=== PATIENT | female | born 1975 | race Two or more races ===

== ENCOUNTER 2025-01-20 21:55 | Inpatient (IN) | payer MEDICAID, OTHER ==
[~2025-01-20] VITALS: Ht 165.1 cm; Wt 65.4 kg
--- NOTE | 2025-01-20 23:14 | DVH ---
Exam: CT CT AB PEL WO CON-NO ORAL OR IV History: rlq pain Comparison Study: None TECHNIQUE: Multidetector CT of the abdomen and pelvis was performed from lung bases to pubic symphysi s. Imaging was performed without IV contrast. Axial, coronal, and sagittal multiplanar reformats were obtained from the axial data set by the technologist. RADIATION DOSE: CTDI vol 5.43 mGy. DLP 299.58 mGy.cm Findings: Limited evaluation of the solid organs in the absence of IV contrast. Liver: Unremarkable. Spleen: Unremarkable. Pancreas: Unremarkable. Gallbladder: Unremarkable. Adrenals: Unremarkable Kidneys: Unremarkable. Pelvic Viscera: Unremarkable. Vasculature: Unremarkable. Retroperitoneum: Shotty retroperitoneal nodes. No ascites. Bowel: No bowel obstruction. Colonic diverticulosis without CT evidence of diverticulitis. Fluid-fill ed and dilated appendix measuring up to 10 mm with periappendiceal stranding. No abscess. Small hiata l hernia. Postsurgical changes of the stomach and small bowel. Musculoskeletal: Sclerotic changes across the opposing endplates of L3-4, likely degenerative in etio logy. Soft tissues: Unremarkable Lungs: Minimal basilar atelectasis/scarring. Impression: 1. Findings as above suggestive of acute appendicitis in the appropriate clinical setting. No abscess . 2. Additional findings as detailed.
[2025-01-20 23:32] LABS: Hematocrit 31.7 % (36.0-46.0); Hemoglobin 9.7 g/dL (12.2-16.2); Mean Corpuscular Hemoglobin 18.2 pg (28.0-32.0); Mean Corpuscular Volume 59.4 fL (80.0-100.0); Nucleated Red Blood Cells % 0.0 %
[2025-01-20 23:41] LABS: Albumin 4.4 g/dL (3.2-4.8); Alkaline Phosphatase 86 U/L (46-116); Anion Gap 9 (5-15); BUN/Creatinine Ratio 7.5 (10.0-20.0); Bilirubin, Total 1.0 mg/dL (0.2-1.0); Calcium 9.2 mg/dL (8.7-10.4); Carbon Dioxide 27 mmol/L (20-31); Chloride 103 mmol/L (98-107); Glucose 92 mg/dL (74-106); Lipase 37 U/L (12-53); Potassium 4.3 mmol/L (3.5-5.1); Sodium 139 mmol/L (136-145); Total Protein 7.1 g/dL (5.7-8.2)
[2025-01-20 23:42] LABS: Alanine Aminotransferase < 9 U/L (7-40); Blood Urea Nitrogen 6 mg/dL (9-23)
[2025-01-21] VITALS (7 sets, daily range): BP systolic 92–108; BP diastolic 58–64; PULSE 56–80; RESP 12–18; TEMP 97.5–97.9; O2SAT 97–100
--- NOTE | 2025-01-21 00:21 | ED.PDOC ---
GI ASSESSMENT HPI Comments Patient complaining of right lower quadrant abdominal pain which started at 9:00 a.m.. States she had some intermittent nausea and vomiting. Reports pain as 6/10 pain. Nothing makes it better, nothing makes it worse. Patient does report a history of gastric bypass. States she has also been hospitalized for strictures in her small intestines. No fevers no chills currently. Chief Complaint: Abdominal Pain Time Seen by MD: 22:10 Reviewed Notes: Nurses Notes Allergies: Coded Allergies: NO KNOWN ALLERGIES (Unverified , 01/20/25) Information Source: Patient Mode of Arrival: Ambulatory Past Medical History PAST MEDICAL HISTORY: Denies Surgical History: Denies all surgeries KNOCKER OFF History: No Pertinent KNOCKER OFF History Constitutional: denies: chills, diaphoresis, fatigue, fever, malaise, sweats, weakness, others EENTM: denies: blurred vision, double vision, ear bleeding, ear discharge, ear drainage, ear pain, ear ringing, eye pain, eye redness, hearing loss, mouth pain, mouth swelling, nasal discharge, nose bleeding, nose congestion, nose pain, photophobia, tearing, throat pain, throat swelling, voice changes, others Respiratory: denies: cough, hemoptysis, orthopnea, SOB at rest, shortness of breath, SOB with excertion, stridor, wheezing, others Cardiovascular: denies: chest pain, dizzy spells, diaphoresis, Dyspnea on exertion, edema, irregular heart beat, left arm pain, lightheadedness, palpitations, PND, syncope, others Gastrointestinal: reports: abdominal pain, nausea, vomiting; denies: abdomen distended, blood streaked bowels, constipated, diarrhea, dysphagia, difficulty swallowing, hematemesis, melena, poor appetite, poor fluid intake, rectal bleeding, rectal pain, others Genitourinary: denies: abnormal vagina bleeding, burning, dyspareunia, dysuria, flank pain, frequency, hematuria, incontinence, pain, , vagina discharge, urgency, others Neurological: denies: dizziness, fainting, headache, left sided numbness, left sided weakness, numbness, paresthesia, pre-existing deficit, right sided numbness, right sided weakness, seizure, speech problems, tingling, tremors, weakness, others Musculoskeletal: denies: back pain, gout, joint pain, joint swelling, muscle pain, muscle stiffness, neck pain, others Integumetry: denies: bruises, change in color, change in hair/nails, dryness, laceration, lesions, lumps, rash, wounds, others Allergic/Immunocompromised: denies: Difficulty Healing, Frequent Infections, Hives, Itching, others Hematologic/Lymphatic: denies: anemia, blood clots, easy bleeding, easy bruising, swollen glands, others Endocrine: denies: excessive hunger, excessive sweating, excessive thirst, excessive urination, flushing, intolerance to cold, intolerance to heat, unex plained weight gain, unexplained weight loss, others Psychiatric: denies: anxiety, bipolar disorder, depression, hopeless, panic disorder, schizophrenia, sleepless, suicidal, others Physical Exam General Appearance: Mild Distress, Normal HEENT: Normal ENT Inspection, Pharynx Normal, TMs Normal Neck: Full Range of Motion, Non-Tender, Normal, Normal Inspection Respiratory: Chest Non-Tender, Lungs Clear, No Accessory Muscle Use, No Respiratory Distress, Normal Breath Sounds Cardiovascular: No Edema, No JVD, No Murmur, No Gallop, Normal Peripheral Pulses, Regular Rate/Rhythm Breast Exam: Deferred Gastrointestinal: No Organomegaly, Normal Bowel Sounds, RLQ (Right lower quadrant tender to palpation, no rebound tenderness), Soft Genitalia: Deferred Pelvic: Deferred Rectal: Deferred Extremities: No calf tenderness, Normal capillary refill, Normal inspection, Normal range of motion, Non-tender, No pedal edema Musculoskeletal : Apperance: Normal Neurologic: Alert, tallow refiner II-XII nml as Tested, No Motor Deficits, Normal Affect, Normal Mood, No Sensory Deficits Cerebellar Function: Normal Reflexes: Normal Skin: Dry, Normal Color, Warm Lymphatic: No Adenopathy Was a procedure done? Was a procedure done?: No GI differential Dx Differential Diagnosis: Appendicitis, Bowel Obstruction, Gastritis/PUD, Gastroenteritis, UTI X-Ray, Labs, Meds, VS Vital Signs Date Time Temp Pulse Resp B/P (MAP) Pulse Ox O2 Delivery O2 Flow Rate FiO2 01/20/25 21:56 97.6 85 18 124/83 95 97.6 Lab Test 01/20/25 22:48 Range/Units White Blood Count 7.9 4.4-10.8 10^3/uL Red Blood Count 5.34 H 4.0-5.20 10^6/uL Hemoglobin 9.7 L 12.2-16.2 g/dL Hematocrit 31.7 L 36.0-46.0 % Mean Corpuscular Volume 59.4 L 80.0-100.0 fL Mean Corpuscular Hemoglobin 18.2 L 28.0-32.0 pg Mean Corpuscular Hemoglobin Concent 30.7 L 32.0-36.0 g/dL Red Cell Distribution Width 20.0 H 11.8-14.3 % Platelet Count 238 140-450 10^3/uL Mean Platelet Volume 9.5 6.9-10.8 fL Neutrophils (%) (Auto) 80.1 H 37.0-80.0 % Lymphocytes (%) (Auto) 12.1 10.0-50.0 % Monocytes (%) (Auto) 6.6 0.0-12.0 % Eosinophils (%) (Auto) 0.6 0.0-7.0 % Basophils (%) (Auto) 0.6 0.0-2.0 % Neutrophils # (Auto) 6.4 1.6-8.6 10 ^3/uL Lymphocytes # (Auto) 1.0 0.4-5.4 10 ^3/uL Monocytes # (Auto) 0.5 0-1.3 10 ^3/uL Eosinophils # (Auto) 0 0-0.8 10 ^3/uL Basophils # (Auto) 0 0-0.2 10 ^3/uL Nucleated Red Blood Cells 0.0 % Sodium Level 139 136-145 mmol/L Potassium Level 4.3 3.5-5.1 mmol/L Chloride Level 103 98-107 mmol/L Carbon Dioxide Level 27 20-31 mmol/L Anion Gap 9 5-15 Blood Urea Nitrogen 6 L 9-23 mg/dL Creatinine 0.80 0.550-1.02 mg/dL Glomerular Filtration Rate Calc 91 >90 mL/min BUN/Creatinine Ratio 7.5 L 10.0-20.0 Serum Glucose 92 74-106 mg/dL Calcium Level 9.2 8.7-10.4 mg/dL Total Bilirubin 1.0 0.2-1.0 mg/dL Aspartate Amino Transferase (AST) 20 13-40 U/L Alanine Aminotransferase (ALT) < 9 7-40 U/L Alkaline Phosphatase 86 46-116 U/L Total Protein 7.1 5.7-8.2 g/dL Albumin 4.4 3.2-4.8 g/dL Lipase 37 12-53 U/L X-Ray, Labs, Meds, VS Comment Patient will be admitted for acute appendicitis Patient be started on Zosyn and Cipro To be given morphine for pain control Recommend surgery consult in the morning Patient advised to be NPO has been 90 Time of 1ST Reevaluation: 00:21 Reevaluation 1ST: Unchanged Patient Education/Counseling: Diagnosis, Treatment Family Education/Counseling: Diagnosis SEPSIS Sepsis Screen Date sepsis recognized/suspect: Jan 20, 2025 Time Sepsis recognized/suspect: 2156 Recent Procedure: No On Antibiotic Therapy: No Respiratory Rate >20: No Heart Rate >90: No Temp<36 C (96.8 F) or >38.3 C: No SBP <90 or MAP <65 mmHG: No New Acute Mental Status Change: No Is the patient on CPAP, BIPAP,: No Physician Orders Urinalysis (01/20/25 22:36) Ct Ab Pel Wo Con-No Oral Or Iv (01/20/25 22:36) Vital Signs Date Time Temp Pulse Resp B/P (MAP) Pulse Ox O2 Delivery O2 Flow Rate FiO2 01/20/25 21:56 97.6 85 18 124/83 95 97.6 Laboratory Tests Test 01/20/25 22:48 White Blood Count 7.9 10^3/uL (4.4-10.8) Departure 1 Departure Time of Disposition: 00:19 Impression: Primary Impression: Appendicitis Qualified Codes: K35.30 - Acute appendicitis with localized peritonitis, without perforation or gangrene Disposition: ADMITTED INPATIENT Condition: Stable Discharged With: Self Critical Care Note Critical Care Time?: No Stability Stability form required: No Heart Score Heart Score: Heart Score Response (Comments) Value History N/A 0 EKG N/A 0 Age N/A 0 Risk Factors N/A 0 Troponin N/A 0 Total 0 BRENDEN ADAMS Jan 21, 2025 00:21
[2025-01-21] MEDS: ONDANSETRON HCL 4 MG/2 ML VIAL IV ONE (00:41)
[2025-01-21] MEDS: MORPHINE SULFATE 4 MG/ML SYR/VIAL IV ONE (00:42)
[2025-01-21] MEDS ORDERED: ACETAMINOPHEN 325 MG TAB PO PRN (01:00)
--- NOTE | 2025-01-21 01:14 | DVHHPRES ---
History of Present Illness Resident Creating Document: ARELY ORTA History of Present Illness This is a 49-year-old female with past medical history of gastric bypass and history of small-bowel stricture. The patient presented to the ED with chief complaint of acute abdominal pain located in the right lower quadrant. Patient reports that the pain started at 9:00 a.m. before coming to the ED with the abdominal cramps that started to localized in the right lower quadrant. Patient described the pain as sharp in nature associated with nausea and episodes of vom iting. The patient states that the pain is localized in the right lower quadrant with no specific pattern of radiation. Patient rated the pain as 8/10 on the pain scale but on admission was currently 6/10 on the pain scale. Patient denies fever, chills, chest pain, shortness of breath or any other associated symptoms. Patient states that minimal movement exacerbates the pain. Upon my examination, McBurney sign was positive with significant tenderness to palpation in the right lower quadrant. Abdomen was not rigid at this time, there was no leukocytosis, fever or chills. Pena score is 5 points possible for appendicitis. Patient was started on IV ceftriaxone and metronidazole, IV fluids, was placed NPO and surgical consult was placed for possible laparoscopic appendectomy. Patient will be admitted for further assessment and management. Past medical history: Gastric bypass and small bowel stricture Home medications: Denies Surgical history: Gastric bypass Social history: Denies alcohol intake, drug ingestion or smoking Past Surgical History: Other (Gastric bypass) Family History: None Smoke: No ALCOHOL: none Drugs: None Lives: with Family Domestic Violence: Neg Review of Systems Constitutional: No: Fever, Chills, Sweats, Weakness, Malaise, Other Eyes: No: Pain, Vision change, Conjunctivae inflammation, Eyelid inflammation, Other, Redness ENT: No: Ear pain, Ear discharge, Nose pain, Nose discharge, Nose congestion, Mouth pain, Mouth swelling, Throat pain, Throat swelling, Other Respiratory: No: Cough, Dry, Shortness of breath, SOB with excertion, Wheezing, Hemoptysis, Pleuritic Pain, Sputum, Wheezing, Other Cardiovascular: No: Chest Pain, Palpitations, Orthopnea, Paroxysmal Noc. Dyspnea, Edema, Lt Headedness, Other Gastrointestinal: Nausea, Vomiting, Abdominal Pain; No: Diarrhea, Constipation, Melena, Hematochezia, Other Genitourinary: No Dysuria, No Frequency, No Incontinence, No Hematuria, No Retention, No Other Musculoskeletal: No: other, neck pain, shoulder pain, arm pain, back pain, hand pain, leg pain, foot pain Skin: No: Rash, Lesions, Jaundice, Bruising, Other Neurological: No: Weakness, Numbness, Incoordination, Change in speech, Confusion, Seizures, Other Allergies: Coded Allergies: NO KNOWN ALLERGIES (Unverified , 01/20/25) Medications Current Medications Medications Dose Ordered Sig/Rock Route Start Time Stop Time Status Last Admin Dose Admin Acetaminophen 650 mg Q6HP PRN PO 01/21/25 01:00 UNV Acetaminophen/ Hydrocodone Bitart 1 tab Q4HP PRN PO 01/21/25 01:00 UNV Exam Vital Signs Vital Signs Date Time Temp Pulse Resp B/P (MAP) Pulse Ox O2 Delivery O2 Flow Rate FiO2 01/21/25 00:42 62 19 112/69 01/20/25 21:56 97.6 95 97.6 General Appearance: Alert, Oriented X3, Cooperative, mild distress HEENT: Atraumatic, PERRLA, EOMI, Mucous membr. moist/pink Respiratory: Clear to auscultation, Normal air movement Cardiovascular: Regular rate, Normal S1, Normal S2, No murmurs Abdominal: Normal bowel sounds, Other (Abhishek significant tenderness in the right lower quadrant with positive McBurney sign. ) Extremities: No clubbing, No cyanosis, No edema, Normal pulses, No tenderness/swelling Skin: No rashes, No breakdown, No significant lesion Neuro: Normal gait, Normal speech, Strength at 5/5 X4 ext, Normal tone, Sensation intact, Cranial nerves 3-12 NL, Reflexes 2+ Psych/Mental Status: Mental status NL, Mood NL Labs/Xrays Labs Test 01/20/25 22:48 Range/Units White Blood Count 7.9 4.4-10.8 10^3/uL Red Blood Count 5.34 H 4.0-5.20 10^6/uL Hemoglobin 9.7 L 12.2-16.2 g/dL Hematocrit 31.7 L 36.0-46.0 % Mean Corpuscular Volume 59.4 L 80.0-100.0 fL Mean Corpuscular Hemoglobin 18.2 L 28.0-32.0 pg Mean Corpuscular Hemoglobin Concent 30.7 L 32.0-36.0 g/dL Red Cell Distribution Width 20.0 H 11.8-14.3 % Platelet Count 238 140-450 10^3/uL Mean Platelet Volume 9.5 6.9-10.8 fL Neutrophils (%) (Auto) 80.1 H 37.0-80.0 % Lymphocytes (%) (Auto) 12.1 10.0-50.0 % Monocytes (%) (Auto) 6.6 0.0-12.0 % Eosinophils (%) (Auto) 0.6 0.0-7.0 % Basophils (%) (Auto) 0.6 0.0-2.0 % Neutrophils # (Auto) 6.4 1.6-8.6 10 ^3/uL Lymphocytes # (Auto) 1.0 0.4-5.4 10 ^3/uL Monocytes # (Auto) 0.5 0-1.3 10 ^3/uL Eosinophils # (Auto) 0 0-0.8 10 ^3/uL Basophils # (Auto) 0 0-0.2 10 ^3/uL Nucleated Red Blood Cells 0.0 % Sodium Level 139 136-145 mmol/L Potassium Level 4.3 3.5-5.1 mmol/L Chloride Level 103 98-107 mmol/L Carbon Dioxide Level 27 20-31 mmol/L Anion Gap 9 5-15 Blood Urea Nitrogen 6 L 9-23 mg/dL Creatinine 0.80 0.550-1.02 mg/dL Glomerular Filtration Rate Calc 91 >90 mL/min BUN/Creatinine Ratio 7.5 L 10.0-20.0 Serum Glucose 92 74-106 mg/dL Calcium Level 9.2 8.7-10.4 mg/dL Total Bilirubin 1.0 0.2-1.0 mg/dL Aspartate Amino Transferase (AST) 20 13-40 U/L Alanine Aminotransferase (ALT) < 9 7-40 U/L Alkaline Phosphatase 86 46-116 U/L Total Protein 7.1 5.7-8.2 g/dL Albumin 4.4 3.2-4.8 g/dL Lipase 37 12-53 U/L SEPSIS Sepsis Screen Date sepsis recognized/suspect: Jan 20, 2025 Time Sepsis recognized/suspect: 2156 Recent Procedure: No On Antibiotic Therapy: No Respiratory Rate >20: No Heart Rate >90: No Temp<36 C (96.8 F) or >38.3 C: No SBP <90 or MAP <65 mmHG: No New Acute Mental Status Change: No Is the patient on CPAP, BIPAP,: No Physician Orders Urinalysis (01/20/25 22:36) Ct Ab Pel Wo Con-No Oral Or Iv (01/20/25 22:36) Metronidazole 500mg/100ml (Flagyl 500mg/ (01/21/25 00:30) Ciprofloxacin 400mg/200ml (Cipro Iv) (01/21/25 00:30) Admit (01/21/25 00:53) Code Status (01/21/25 00:53) Vital Signs .PER UNIT PROTOCOL (01/21/25 00:53) Review Orders With Adm.Md (01/21/25 00:53) Encourage Activity As Tolerate (01/21/25 00:53) Npo (Nothing By Mouth) Diet (01/21/25 Breakfast) Acetaminophen Tablet (Tylenol Tablet) (01/21/25 01:00) Notify Md Of Changes From Base (01/21/25 00:53) Advance Directive (01/21/25 00:53) Basic Metabolic Panel (01/21/25 04:00) Urinalysis (01/21/25 00:53) Complete Blood Count (01/21/25 04:00) Lipid Panel (01/21/25 00:53) Patient Condition (01/21/25 00:53) Allergies (01/21/25 00:53) Hydrocodone-Acet 5/325mg Tab ([place] 5/32 (01/21/25 01:00) Drug Screen (01/21/25 00:53) Hemoglobin A1c (01/21/25 00:53) Iron Panel (01/21/25 01:01) Ferritin (01/21/25 01:01) Vitamin B12 (01/21/25 01:01) * Surgical Consult (01/21/25 ) Ceftriaxone Ivpb Rocephin (01/21/25 10:00) Metronidazole Ivpb Flagyl (01/21/25 06:00) Lactated Ringers Lr (01/21/25 01:15) Vital Signs Date Time Temp Pulse Resp B/P (MAP) Pulse Ox O2 Delivery O2 Flow Rate FiO2 01/21/25 00:42 62 19 112/69 01/20/25 21:56 97.6 85 18 124/83 95 97.6 Laboratory Tests Test 01/20/25 22:48 White Blood Count 7.9 10^3/uL (4.4-10.8) Medications Medications Dose Ordered Sig/Rock Route Start Time Stop Time Status Last Admin Dose Admin Metronidazole 100 ml @ 100 mls/hr ONCE ONCE IV 01/21/25 00:30 01/21/25 01:29 01/21/25 00:50 100 MLS/HR Morphine Sulfate 4 mg ONCE ONCE IV 01/21/25 00:30 01/21/25 00:31 DC 01/21/25 00:42 4 MG Ondansetron HCl 4 mg ONCE ONCE IV 01/21/25 00:30 01/21/25 00:31 DC 01/21/25 00:41 4 MG Assessment/Plan Assessment/Plan Assessment/plan Acute abdominal pain likely due to acute appendicitis -patient reports right lower quadrant tenderness with positive McBurney sign -reported nausea and vomiting but no fever or chills. No leukocytosis -Pena scored 5 points (provable appendicitis) -CT scan of the abdomen showing findings suggestive of acute appendicitis there was no abscess or perforation -ciprofloxacin and metronidazole were given in the ED -start IV ceftriaxone 2 g daily and metronidazole 500 mg IV q.8 hours -consulted surgery -lactate Ringer 1 L bolus -monitor vitals closely -keep patient NPO -monitor electrolytes Acute on chronic iron deficiency anemia -ordered iron panel and ferritin -monitor hemoglobin and hematocrit. Current hemoglobin is 9.7 History of gastric bypass -gastric surgical bypass with residual small bowel stricture Goals of care discussion with the patient at bedside, full code Plan discussed with Dr. Melo Plan discussed with: Patient My Orders Orders - ARELY ORTA RESIDENT Procedure Category Date Status Time Admit ADMIT 01/21/25 Transmitted 00:53 Code Status CODE 01/21/25 Transmitted 00:53 Vital Signs JASWINDER 01/21/25 In Process 00:53 Review Orders With JASWINDER 01/21/25 In Process Adm. 00:53 Encourage Activity As JASWINDER 01/21/25 In Process Tolerate 00:53 Npo (Nothing By DIET 01/21/25 Transmitted Mouth) Diet Breakfast Acetaminophen Tablet PHA 01/21/25 Logged (Tylenol Tablet) 01:00 Notify Of Changes JASWINDER 01/21/25 In Process From Base 00:53 Advance Directive JASWINDER 01/21/25 In Process 00:53 Basic Metabolic Panel LAB 01/21/25 Logged 04:00 Urinalysis LAB 01/21/25 Logged 00:53 Complete Blood Count LAB 01/21/25 Logged 04:00 Lipid Panel LAB 01/21/25 Logged 00:53 Patient Condition ORDERS 01/21/25 Transmitted 00:53 Allergies JASWINDER 01/21/25 In Process 00:53 Hydrocodone-Acet PHA 01/21/25 Logged 5/325mg Tab ([place] 01:00 Drug Screen LAB 01/21/25 Logged 00:53 Hemoglobin A1c LAB 01/21/25 Logged 00:53 Iron Panel LAB 01/21/25 Logged 01:01 Ferritin LAB 01/21/25 Logged 01:01 Vitamin B12 LAB 01/21/25 Logged 01:01 * Surgical Consult CONS 01/21/25 Transmitted Ceftriaxone Ivpb PHA 01/21/25 Verified Rocephin 10:00 Metronidazole Ivpb PHA 01/21/25 Verified Flagyl 06:00 Lactated Ringers Lr PHA 01/21/25 Verified 01:15 Date of Service: Jan 21, 2025 Billing Provider: JANY MELO MD Common Visit Codes: 76317-SJPVPBV INP/OBS CARE (HIGH) Secondary Visit Codes: 24525-JBQUVBKE CARE PLAN 30 MINUTES ARELY ORTA RESIDENT Jan 21, 2025 01:14
[2025-01-21 01:54] LABS: Iron 15.0 ug/dL (50-170)
[2025-01-21 01:56] LABS: Total Iron Binding Capacity 349.0 ug/dL (250-425)
[2025-01-21] MEDS: CIPROFLOXACIN 400MG/200ML 200 ML IV ONE (01:58)
[2025-01-21 02:39] LABS: Triglycerides 72 mg/dL (< 150)
[2025-01-21 02:41] LABS: Cholesterol 122 mg/dL (< 200); Ferritin 2.8 ng/mL (10-291); HDL Cholesterol 48 mg/dL (40-59)
[2025-01-21] MEDS: LACTATED RINGER'S 1,000 ML IV ONE (03:38)
[2025-01-21] MEDS ORDERED: OMEP20TA PO ×2 (04:52)
[2025-01-21 04:54] LABS: Opiate Scree,Urine Pos (NEGATIVE); Urine Protein, UAD Negative (Negative)
[2025-01-21 05:02] LABS: Amphetamine Screen, Urine Neg (NEGATIVE); Barbiturate Scree,Urine Neg (NEGATIVE); Benzodiazephine Screen, Urine Neg (NEGATIVE); Cannabinoid Screen, Urine Neg (NEGATIVE); Cocaine Screen, Urine Neg (NEGATIVE); Phencyclidine Screen, Urine Neg (NEGATIVE)
[2025-01-21 05:47] LABS: Hemoglobin 9.4 g/dL (12.2-16.2)
[2025-01-21 05:48] LABS: Hematocrit 30.9 % (36.0-46.0); Mean Corpuscular Hemoglobin 18.2 pg (28.0-32.0); Mean Corpuscular Volume 59.7 fL (80.0-100.0); Nucleated Red Blood Cells % 0.0 %
[2025-01-21 06:19] LABS: Chloride 104 mmol/L (98-107); Potassium 4.1 mmol/L (3.5-5.1); Sodium 140 mmol/L (136-145)
[2025-01-21 06:20] LABS: Anion Gap 8 (5-15); Calcium 8.8 mg/dL (8.7-10.4); Carbon Dioxide 28 mmol/L (20-31)
[2025-01-21 06:25] LABS: BUN/Creatinine Ratio 7.2 (10.0-20.0); Blood Urea Nitrogen < 5 mg/dL (9-23); Glucose 83 mg/dL (74-106)
[2025-01-21 08:04] LABS: INR 1.12 (0.9-1.15); Partial Thromboplastin Time 30.5 SEC (24.5-34.5); Prothrombin Time 11.7 sec (9.3-11.8)
--- NOTE | 2025-01-21 08:27 | DVHINCON2 ---
Date of service: Jan 21, 2025 Allergies: Coded Allergies: NO KNOWN ALLERGIES (Unverified , 01/20/25) Home Meds Reported Medications Omeprazole (Gnp Omeprazole) 20 Mg Tab, 20 MG PO DAILY, TAB 01/21/25 Current Medications Current Medications Medications (Trade) Dose Ordered Sig/Rock Route PRN Reason Start Time Stop Time Status Last Admin Acetaminophen (Tylenol Tablet) 650 mg Q6HP PRN PO PAIN SCALE 1-3 OR TEMP>100.4 01/21/25 01:00 Acetaminophen/ Hydrocodone Bitart ([place] 5/325MG Tab) 1 tab Q4HP PRN PO MODERATE PAIN (4-6 PAIN SCALE) 01/21/25 01:00 Ceftriaxone Sodium/Dextrose 50 ml @ 50 mls/hr DAILY IV 01/21/25 10:00 Metronidazole 100 ml @ 100 mls/hr Q8HR@0100,0900,1700 IV 01/21/25 09:00 Potassium Chloride/Dextrose/ Sod Cl 1,000 ml @ 120 mls/hr Q8H20M IV 01/21/25 07:45 Vital Signs Vital Signs Date Time Temp Pulse Resp B/P (MAP) Pulse Ox O2 Delivery O2 Flow Rate FiO2 01/21/25 07:09 96/59 (71) 01/21/25 06:23 52 10 97 01/21/25 01:45 98.3 98.3 01/21/25 00:33 Room Air* 0 21 Labs/Diagnostic Data Labs Test 01/21/25 05:07 01/21/25 02:50 01/20/25 22:48 Range/Units White Blood Count 7.3 4.4-10.8 10^3/uL Red Blood Count 5.17 4.0-5.20 10^6/uL Hemoglobin 9.4 L 12.2-16.2 g/dL Hematocrit 30.9 L 36.0-46.0 % Mean Corpuscular Volume 59.7 L 80.0-100.0 fL Mean Corpuscular Hemoglobin 18.2 L 28.0-32.0 pg Mean Corpuscular Hemoglobin Concent 30.4 L 32.0-36.0 g/dL Red Cell Distribution Width 20.9 H 11.8-14.3 % Platelet Count 200 140-450 10^3/uL Mean Platelet Volume 9.0 6.9-10.8 fL Neutrophils (%) (Auto) 76.3 37.0-80.0 % Lymphocytes (%) (Auto) 15.4 10.0-50.0 % Monocytes (%) (Auto) 7.0 0.0-12.0 % Eosinophils (%) (Auto) 0.9 0.0-7.0 % Basophils (%) (Auto) 0.4 0.0-2.0 % Neutrophils # (Auto) 5.6 1.6-8.6 10 ^3/uL Lymphocytes # (Auto) 1.1 0.4-5.4 10 ^3/uL Monocytes # (Auto) 0.5 0-1.3 10 ^3/uL Eosinophils # (Auto) 0.1 0-0.8 10 ^3/uL Basophils # (Auto) 0 0-0.2 10 ^3/uL Nucleated Red Blood Cells 0.0 % Prothrombin Time 11.7 9.3-11.8 sec Prothrombin Time INR 1.12 0.9-1.15 Activated Partial Thromboplast Time 30.5 24.5-34.5 SEC Sodium Level 140 136-145 mmol/L Potassium Level 4.1 3.5-5.1 mmol/L Chloride Level 104 98-107 mmol/L Carbon Dioxide Level 28 20-31 mmol/L Anion Gap 8 5-15 Blood Urea Nitrogen < 5 L 9-23 mg/dL Creatinine 0.69 0.550-1.02 mg/dL Glomerular Filtration Rate Calc 107 >90 mL/min BUN/Creatinine Ratio 7.2 L 10.0-20.0 Serum Glucose 83 74-106 mg/dL Hemoglobin A1c 5.4 <5.7 % A1C Calcium Level 8.8 8.7-10.4 mg/dL Urine Color Light-yellow Yellow Urine Clarity Clear Clear Urine pH 5.5 5.0-9.0 Urine Specific Ola 1.008 1.001-1.035 Urine Protein Negative Negative Urine Ketones Negative Negative Urine Blood Negative Negative /uL Urine Nitrite Negative Negative Urine Bilirubin Negative Negative Urine Urobilinogen Normal Negative mg/dL Urine Leukocyte Esterase 2+ Negative /uL Urine RBC None seen 0 - 4 /hpf Urine Microscopic WBC 16 H 0-5 /HPF Urine Squamous Epithelial Cells Few <5 /hpf Urine Bacteria None seen None Seen /hpf Urine Mucus Few None Seen Urine Glucose Normal Normal mg/dL Urine Opiates Screen Pos NEGATIVE Urine Fentanyl Screen Pos NEGATIVE Urine Barbiturates Screen Neg NEGATIVE Urine Phencyclidine Screen Neg NEGATIVE Urine Amphetamines Screen Neg NEGATIVE Urine Benzodiazepines Screen Neg NEGATIVE Urine Cocaine Screen Neg NEGATIVE Urine Cannabinoids Screen Neg NEGATIVE Iron Level 15 L 50-170 ug/dL Total Iron Binding Capacity 349 250-425 ug/dL Percent Iron Saturation 4.3 L 15-50 % Ferritin 2.8 L 10-291 ng/mL Total Bilirubin 1.0 0.2-1.0 mg/dL Aspartate Amino Transferase (AST) 20 13-40 U/L Alanine Aminotransferase (ALT) < 9 7-40 U/L Alkaline Phosphatase 86 46-116 U/L Total Protein 7.1 5.7-8.2 g/dL Albumin 4.4 3.2-4.8 g/dL Triglycerides Level 72 < 150 mg/dL Cholesterol Level 122 < 200 mg/dL LDL Cholesterol 62 < 100 mg/dL HDL Cholesterol 48 40-59 mg/dL Lipase 37 12-53 U/L Vitamin B12 Level 423 211-911 pg/mL Assessment 49 year old female who had a bariatric operation in the past now presenting with c/o abdominal pain,nausea,anorexia, right lower quadrant point tenderness and rebound tenderness, ct scan indicating possible appendicitis, wbc normal, from physical examination i believe she has appendicitis, treatment options, operation(laparoscopic vs.open appendectomy) risks and complications explained in detail. Plan discussed with: Patient ELLEN MCLEAN MD Jan 21, 2025 08:27
[2025-01-21] MEDS: ceFAZolin 2 GM/D5W50ml 50 ML IV ONE (08:48)
--- NOTE | 2025-01-21 08:50 | DVHPNRES ---
Progress Note Date Seen: Jan 21, 2025 Resident Creating Document: VINCENZO MONTOYA RESIDENT Medical Necessity Reason Pt with a Central, PICC or Fol: No Subjective Review of Systems The patient is a 49-year-old female with prior medical history of gastric bypass surgery with subsequent stricture, who presented to the ED with chief complaint of abdominal pain. The patient refers progressive onset of abdominal pain described as cramp like, initially generalized but subsequently migrated and concentrated in right lower quadrant, initially 4/10 progressed to 8/10, exacerbated by movement, with no relieving factors, associated with vomiting, nausea, and dry heaves. she denied fever, diarrhea, bloody stools, bloody vomiting, generalized body aches, malaise, fatigue, chest pain, and palpitations. Due to worsening of symptoms, the patient sought medical attention. On evaluation in the ED, the patient was in mild distress with tenderness to palpation of the right lower quadrant. Initial labs show microcytic anemia, complete metabolic panel is within normal range, and UA shows ULE 2+ and WBCs 16. Abdomen pelvis CT shows fluid-filled and dilated appendix measuring up to 10 mm with periappendiceal stranding suggestive of acute appendicitis. She was admitted for further workup and monitoring. On admission, she was placed on NPO, IV fluids, IV antibiotics, and a surgery consult was placed. 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 States she lives with her and daughter, states she feels safe. Patient seen at bedside. She states that the abdominal pain has improved with medications given, currently denies fever, diarrhea, new episodes of vomiting, chest pain, and palpitations. Blood pressure has been borderline low, other vitals have been within normal range. Follow up labs continue to show microcytic anemia, iron panel significant for low iron, low ferritin, and decreased TIBC saturation. The patient was evaluated by General surgery, who decided to take the patient for laparoscopic appendectomy today. She will continue on IV antibiotics and we will continue to monitor. Review of Systems: Constitutional: Denies weight loss, fever and chills. HEENT: Denies changes in vision and hearing. Respiratory: Denies shortness of breath and cough Cardiovascular: Denies chest discomfort or palpitations GI: Refers abdominal pain, refers decreased appetite, Denies abdominal distention, diarrhea : Denies dysuria and urinary frequency. Musculoskeletal: denies symptoms Skin: Denies rash and pruritus. Neurological: denies dizziness headache vision or hearing problems Objective vital signs Vital Sign Date Time Temp Pulse Resp B/P (MAP) Pulse Ox O2 Delivery O2 Flow Rate FiO2 01/21/25 07:09 96/59 (71) 01/21/25 06:23 52 10 97 01/21/25 01:45 98.3 98.3 01/21/25 00:33 Room Air* 0 21 Total Intake and Output 01/20/25 01/20/25 01/21/25 15:00 23:00 07:00 Intake Total 1300 ml Balance 1300 ml medications Current Medications Medications Dose Ordered Sig/Rock Route Start Time Stop Time Status Last Admin Dose Admin Acetaminophen 650 mg Q6HP PRN PO 01/21/25 01:00 Acetaminophen/ Hydrocodone Bitart 1 tab Q4HP PRN PO 01/21/25 01:00 Ceftriaxone Sodium/Dextrose 50 ml @ 50 mls/hr DAILY IV 01/21/25 10:00 Metronidazole 100 ml @ 100 mls/hr Q8HR@0100,0900,1700 IV 01/21/25 09:00 Potassium Chloride/Dextrose/ Sod Cl 1,000 ml @ 120 mls/hr Q8H20M IV 01/21/25 07:45 Examination General: The patient alert and oriented in person place and time. Patient following commands HEENT: Normocephalic, atraumatic, normal reactive pupils, EOM intact, moist mucous membrane Respiratory/pulmonary: Clear lungs bilaterally, vesicular murmurs present in almost all lung padgett, no associated crackles or wheezes. Cardiovascular: Normal RRR, normal S1 and S2 Abdomen: Abdomen nondistended, normal bowel sounds, soft, pain to palpation of RLQ, McBurney positive, no rebound tenderness, no palpable masses. Extremities: no deformities, there is no peripheral edema present at the lower extremities, pulses are palpable Skin: No rashes or pruritus, there is no sacral edema present at this time. Neurological: Intact cranial nerves with no focal neurologic deficits laboratory and microbiology Laboratory Tests 01/21/25 05:07 Test 01/21/25 05:07 Range/Units Serum Glucose 83 74-106 mg/dL Problem List/Assessment/Plan Problem List/Assessment/Plan Assessment and Plan: Intractable abdominal pain due to Acute Appendicitis -Abdomen pelvis CT: fluid-filled and dilated appendix measuring up to 10 mm with periappendiceal stranding suggestive of acute appendicitis. -General surgery: physical examination I believe she has appendicitis, treatment options, operation (laparoscopic versus open appendectomy ) risks and complications explained in detail. - Ceftriaxone 1 g IV daily - Metronidazole 500 mg IV q.8 hours - [place] 5 mg p.o. q.4 hours PRN - Mrphine 4 mg IV once - Acetaminophen 650 mg p.o. q.6 hours p.r.n. 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 Major Goals of care discussed with the patient for over 25 minutes. FULL CODE. Plan discussed with: Patient Date of Service: Jan 21, 2025 Billing Provider: JUAN CARLOS MAJOR MD Common Visit Codes: [id number] INP/OBS CARE(HIGH) Secondary Visit Codes: [id number] CARE PLAN 30 MINUTES VINCENZO MONTOYA RESIDENT Jan 21, 2025 08:50 JUAN CARLOS MAJOR MD Jan 24, 2025 20:32
[2025-01-21] MEDS: BUPIVACAINE HCL 0.25% P/F 10 ML VIAL ONE (08:58)
[2025-01-21] MEDS: LIDOCAINE W/ EPINEPHRINE 1% 20ML VIAL ONE (08:58)
[2025-01-21] MEDS ORDERED: HYDROmorphone HCL 2 MG/ML VL/or syr ONE (09:10)
[2025-01-21] MEDS ORDERED: KETAMINE 50mg/ML 1ml syringe ONE (09:10)
[2025-01-21] MEDS ORDERED: ONDANSETRON HCL 4 MG/2 ML VIAL ONE (09:11)
[2025-01-21] MEDS ORDERED: GLYCOPYRROLATE 0.2 MG/ML 1ML VIAL ONE (09:11)
[2025-01-21] MEDS ORDERED: PROPOFOL 10 MG/ML 20 ML IV ONE (09:11)
[2025-01-21] MEDS ORDERED: LIDOCAINE 2% (LOCAL ANESTH.) PF 5ml SDV ONE (09:11)
[2025-01-21] MEDS ORDERED: SUGAMMADEX 200mg/2ml Vial (100MG/ML) IV ONE (09:11)
[2025-01-21] MEDS ORDERED: KETOROLAC TROMETH 30 MG/ML 1ML VIAL ONE (09:11)
[2025-01-21] MEDS ORDERED: fentaNYL CITRATE 100 MCG/2 ML VL ONE (09:11)
[2025-01-21] MEDS ORDERED: MIDAZOLAM HCL 2MG/2ML 2ml VIAL (1mg/ml) ONE (09:11)
[2025-01-21] MEDS: cefTRIAXone 2GM/50ML D5W 50 ML IV SCH (10:00)
--- NOTE | 2025-01-21 10:14 | DVHOP ---
DATE OF SURGERY: 01/21/2025 PREOPERATIVE DIAGNOSIS: Appendicitis. POSTOPERATIVE DIAGNOSIS: Appendicitis. SURGEON: Bud Bridges MD HELPER COORDINATOR: Sunny Ricardo NP ANESTHESIA: General endotracheal, Dr. Yost. PROCEDURE: Laparoscopy, laparoscopic appendectomy. DESCRIPTION OF PROCEDURE: Under general endotracheal anesthesia with the patient's skin prepped and draped, a supraumbilical incision was made and Veress needle inserted in to the peritoneal cavity by the hanging drop technique in order to establish pneumoperitoneum to 15 mmHg pressure by insufflation with carbon dioxide. With the abdomen fully distended, the needle was removed and replaced with a 5 mm trocar port through which a 0-degree viewing laparoscope was inserted and under direct vision, additional 5 and 10 mm ports inserted through the infraumbilical skin and the subxiphoid skin in the midline, respectively. Instrumentation was introduced and laparoscopy was conducted revealing no obvious unexpected pathology. The appendix was acutely inflamed and attached to the anterolateral abdominal wall. The appendix was grasped with a Ly forceps and traced to its confluence with the cecum at its base. The confluence with the cecum was cross-clamped and divided with an Endo JEFF stapler equipped with vascular kerri. The severed appendix and mesoappendix were removed from the peritoneal cavity by placement in a specimen extraction bag, which was withdrawn through the 10-mm port site. Subsequently, the right lower quadrant was profusely irrigated. Irrigant was aspirated. Hemostasis was meticulously accomplished and found to be complete at the termination of the procedure. There was no evidence of bleeding from either the appendicectomy site or from the port sites. Instrumentation was withdrawn. Pneumoperitoneum was evacuated. The wound was approximated using Monocryl sutures, Dermabond, glue, and Steri-Strips. The patient remained stable throughout the procedure, left the operating room following an accurate needle and sponge count. Her , Wyatt, was thoroughly informed at [phone]. Bud Bridges MD PF/MARTINEZ TID: [id number] RECEIPT: [id number]
[2025-01-21] MEDS ORDERED: ONDANSETRON HCL 4 MG/2 ML VIAL IV PRN (10:30)
[2025-01-21] MEDS ORDERED: ACETAMINOPHEN IV 1000 MG/100ML (10MG/ML) IV ONE (10:30)
[2025-01-21] MEDS ORDERED: HYDROmorphone HCL 2 MG/ML VL/or syr IV PRN (10:30)
[2025-01-21] MEDS: D5W/SOD CHL 0.45%/KCL 20MEQ 1,000 ML IV SCH (11:35)
[2025-01-21] MEDS: HYDROcodone-ACET 5/325MG TAB PO PRN (22:19)
[2025-01-22] VITALS (11 sets, daily range): BP systolic 93–118; BP diastolic 51–69; PULSE 66–71; RESP 18–20; TEMP 97.9–98.5; O2SAT 98–100
[2025-01-22 05:54] LABS: Hematocrit 18.9 % (36.0-46.0); Mean Corpuscular Hemoglobin 18.1 pg (28.0-32.0); Mean Corpuscular Volume 59.6 fL (80.0-100.0); Nucleated Red Blood Cells % 0.0 %
[2025-01-22 05:58] LABS: Hemoglobin 5.7 g/dL (12.2-16.2)
[2025-01-22 06:10] LABS: Anion Gap 6 (5-15); Carbon Dioxide 27 mmol/L (20-31); Chloride 103 mmol/L (98-107); Potassium 4.3 mmol/L (3.5-5.1); Sodium 136 mmol/L (136-145)
[2025-01-22 06:13] LABS: Calcium 8.0 mg/dL (8.7-10.4)
[2025-01-22 06:16] LABS: BUN/Creatinine Ratio 8.6 (10.0-20.0)
[2025-01-22 06:36] LABS: Blood Urea Nitrogen 5 mg/dL (9-23); Glucose 118 mg/dL (74-106)
--- NOTE | 2025-01-22 14:19 | DVHPN2 ---
Subjective Date Seen: Jan 22, 2025 Post op day Post op day: 1 Patient reports: No new complaints, Feels better Nursing reports: No new complaints General: Normal HNT: Normal Cardiovascular: Normal Respiratory: Normal Gastrointestinal: Normal Genitourinary: Normal Musculoskeletal: Normal Neurological: Normal Objective Vitals Vital Sign Date Time Temp Pulse Resp B/P (MAP) Pulse Ox O2 Delivery O2 Flow Rate FiO2 01/22/25 12:56 98.5 67 18 110/66 98.5 01/22/25 09:00 98 01/22/25 08:00 Room Air* 0 21 Total Intake and Output 01/21/25 01/21/25 01/22/25 15:00 23:00 07:00 Intake Total 150 ml 1050 ml 300 ml Balance 150 ml 1050 ml 300 ml Medications Current Medications Medications Dose Ordered Sig/Rock Route Start Time Stop Time Status Last Admin Dose Admin Acetaminophen 650 mg Q6HP PRN PO 01/21/25 01:00 Acetaminophen/ Hydrocodone Bitart 1 tab Q4HP PRN PO 01/21/25 01:00 01/22/25 10:15 1 TAB Ceftriaxone Sodium/Dextrose 50 ml @ 50 mls/hr DAILY IV 01/21/25 10:00 Metronidazole 100 ml @ 100 mls/hr Q8HR@0100,0900,1700 IV 01/21/25 09:00 01/22/25 02:00 100 MLS/HR Potassium Chloride/Dextrose/ Sod Cl 1,000 ml @ 120 mls/hr Q8H20M IV 01/21/25 07:45 01/22/25 02:00 120 MLS/HR General: Normal Head/Eyes: Normal ENT: Normal Neck: Normal, Supple Lungs: Normal Cardiovascular: Normal, Regular rate and rhythm Abdominal: Normal, Soft Skin: Normal Labs and Microbiology Laboratory Tests 01/22/25 04:18 Test 01/22/25 04:18 Range/Units Serum Glucose 118 H 74-106 mg/dL Ass/Plan Problem List Assessment and Plan: Intractable abdominal pain due to Acute Appendicitis -Abdomen pelvis CT: fluid-filled and dilated appendix measuring up to 10 mm with periappendiceal stranding suggestive of acute appendicitis. -General surgery: physical examination I believe she has appendicitis, treatment options, operation (laparoscopic versus open appendectomy ) risks and complications explained in detail. - Ceftriaxone 1 g IV daily - Metronidazole 500 mg IV q.8 hours - [place] 5 mg p.o. q.4 hours PRN - Mrphine 4 mg IV once - Acetaminophen 650 mg p.o. q.6 hours p.r.n. 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 Major Goals of care discussed with the patient for over 25 minutes. FULL CODE. Assessment/Plan s/p laparoscopic appendectomy tolerating diet, passing gas, denies nausea and vomiting abdomen soft, non distended, appropriately tender wounds clean dry and intact Plan: ok to discharge per surgery point of view follow up in surgery clinic in 2 weeks may shower in 48 hours Prognosis: Good Plan discussed with patient, Dr. Bridges Visit Coding Surgery Date of Service if different f: Jan 22, 2025 Billing Provider: ELLEN BRIDGES MD Surgery Visit Codes: [id number] INP/OBS CARE(HIGH) RAÚL MCKENZIE NP Jan 22, 2025 14:19
[2025-01-22 17:45] LABS: Hemoglobin 7.9 g/dL (12.2-16.2)
[2025-01-22 17:47] LABS: Hematocrit 25.4 % (36.0-46.0)
--- NOTE | 2025-01-22 19:39 | DVHPNRES ---
Progress Note Date Seen: Jan 22, 2025 Resident Creating Document: VINCENZO MONTOYA RESIDENT Medical Necessity Reason Pt with a Central, PICC or Fol: No Subjective Review of Systems The patient is a 49-year-old female with prior medical history of gastric bypass surgery with subsequent stricture, who presented to the ED with chief complaint of abdominal pain. The patient refers progressive onset of abdominal pain described as cramp like, initially generalized but subsequently migrated and concentrated in right lower quadrant, initially 4/10 progressed to 8/10, exacerbated by movement, with no relieving factors, associated with vomiting, nausea, and dry heaves. she denied fever, diarrhea, bloody stools, bloody vomiting, generalized body aches, malaise, fatigue, chest pain, and palpitations. Due to worsening of symptoms, the patient sought medical attention. On evaluation in the ED, the patient was in mild distress with tenderness to palpation of the right lower quadrant. Initial labs show microcytic anemia, complete metabolic panel is within normal range, and UA shows ULE 2+ and WBCs 16. Abdomen pelvis CT shows fluid-filled and dilated appendix measuring up to 10 mm with periappendiceal stranding suggestive of acute appendicitis. She was admitted for further workup and monitoring. On admission, she was placed on NPO, IV fluids, IV antibiotics, and a surgery consult was placed. 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 States she lives with her and daughter, states she feels safe. Patient seen at bedside. She is AOx4, states she feels well, refers minor abdominal tenderness, refers dizziness upon standing and ambulating, tolerating clear liquid diet, has been able to sleep well. Currently denies fever, diarrhea, vomiting, chest pain, and palpitations. Vitals have been within normal range. Follow-up labs were significant for hemoglobin of 5.7. Patient was transfused 1 PRBC. Follow-up H&H shows Hb of 7.9. The patient has been advanced to soft mechanical diet. She currently continues on IV antibiotics. We will continue to monitor possible discharge tomorrow. Objective vital signs Vital Sign Date Time Temp Pulse Resp B/P (MAP) Pulse Ox O2 Delivery O2 Flow Rate FiO2 01/22/25 16:55 98.4 67 20 112/69 (83) 98 98.4 01/22/25 08:00 Room Air* 0 21 Total Intake and Output 01/21/25 01/21/25 01/22/25 15:00 23:00 07:00 Intake Total 150 ml 1050 ml 300 ml Balance 150 ml 1050 ml 300 ml medications Current Medications Medications Dose Ordered Sig/Rock Route Start Time Stop Time Status Last Admin Dose Admin Acetaminophen 650 mg Q6HP PRN PO 01/21/25 01:00 Acetaminophen/ Hydrocodone Bitart 1 tab Q4HP PRN PO 01/21/25 01:00 01/22/25 10:15 1 TAB Ceftriaxone Sodium/Dextrose 50 ml @ 50 mls/hr DAILY IV 01/21/25 10:00 Metronidazole 100 ml @ 100 mls/hr Q8HR@0100,0900,1700 IV 01/21/25 09:00 01/22/25 17:32 100 MLS/HR Potassium Chloride/Dextrose/ Sod Cl 1,000 ml @ 120 mls/hr Q8H20M IV 01/21/25 07:45 01/22/25 17:32 120 MLS/HR Examination General: The patient alert and oriented in person place and time. Patient following commands HEENT: Normocephalic, atraumatic, normal reactive pupils, EOM intact, pale conjunctiva, pink moist mucous membrane Respiratory/pulmonary: Clear lungs bilaterally, vesicular murmurs present in almost all lung padgett, no associated crackles or wheezes. Cardiovascular: Normal RRR, normal S1 and S2 Abdomen: Abdomen nondistended, presence of post laparoscopic incisions are clean and dry and approximated, normal bowel sounds, soft, tenderness to palpation around incisions, no rebound tenderness, no palpable masses. Extremities: no deformities, there is no peripheral edema present at the lower extremities, pulses are palpable Skin: No rashes or pruritus, there is no sacral edema present at this time. Neurological: Intact cranial nerves with no focal neurologic deficits laboratory and microbiology Laboratory Tests 01/22/25 17:10 01/22/25 04:18 Test 01/22/25 04:18 Range/Units Serum Glucose 118 H 74-106 mg/dL Problem List/Assessment/Plan Problem List/Assessment/Plan Assessment and Plan: Intractable abdominal pain due to Acute Appendicitis -Abdomen pelvis CT: fluid-filled and dilated appendix measuring up to 10 mm with periappendiceal stranding suggestive of acute appendicitis. -General surgery: physical examination I believe she has appendicitis, treatment options, operation (laparoscopic versus open appendectomy ) risks and complications explained in detail. - Ceftriaxone 1 g IV daily - Metronidazole 500 mg IV q.8 hours - [place] 5 mg p.o. q.4 hours PRN - Morph[place] 4 mg IV once - Acetaminophen 650 mg p.o. q.6 hours p.r.n. - Ciprofloxacin IV once - Soft mechanical diet - s/p laparoscopic appendectomy Intractable vomiting, due to above - ondansetron 4 mg IV once - lactate Ringer 1000 mL IV once Dehydration, due to above - lactate ranges 1000 cc IV once Microcytic hypochromic anemia, Acute on Chronic -1 PRBC -Monitor H and H Abdominal stricture secondary to bariatric surgery -Abdominal CT: surgical changes of the stomach and small bowel Colonic diverticulosis without CT evidence of diverticulitis -Abdominal CT: colonic diverticulosis without evidence of diverticulitis History of marijuana use History of tobacco use Diet: Soft mechanical diet DVT prophylaxis: Not indicated, MELBA 0 GI prophylaxis: Not indicated Case discussed with Dr. Major Goals of care discussed with the patient for over 20 minutes. FULL CODE. Plan discussed with: Patient My Orders My Orders Orders - VINCENZO MONTOYA RESIDENT Procedure Category Date Status Time Obtain Consent For: ORDERS 01/22/25 Transmitted 06:35 Mechanical Soft Diet DIET 01/22/25 Transmitted Dinner CC Plasma Assessment Blood Product Administration S: 0925 Date of Service: Jan 22, 2025 Billing Provider: JUAN CARLOS MAJOR MD Common Visit Codes: [id number] INP/OBS CARE(HIGH) VINCENZO MONTOYA RESIDENT Jan 22, 2025 19:39 JUAN CARLOS MAJOR MD Jan 24, 2025 20:33
[2025-01-23] VITALS (10 sets, daily range): BP systolic 98–135; BP diastolic 57–75; PULSE 68–85; RESP 16–18; TEMP 97.8–98.8; O2SAT 96–98
[2025-01-23 06:04] LABS: Mean Corpuscular Hemoglobin 20.3 pg (28.0-32.0)
[2025-01-23 06:06] LABS: Hematocrit 20.8 % (36.0-46.0); Mean Corpuscular Volume 64.2 fL (80.0-100.0); Nucleated Red Blood Cells % 0.1 %
[2025-01-23 06:10] LABS: Anion Gap 8 (5-15); Carbon Dioxide 27 mmol/L (20-31); Hemoglobin 6.6 g/dL (12.2-16.2); Potassium 4.1 mmol/L (3.5-5.1); Sodium 143 mmol/L (136-145)
[2025-01-23 06:11] LABS: Chloride 108 mmol/L (98-107)
[2025-01-23 06:14] LABS: Calcium 8.1 mg/dL (8.7-10.4)
[2025-01-23 06:16] LABS: Glucose 78 mg/dL (74-106)
[2025-01-23 06:17] LABS: BUN/Creatinine Ratio 7.8 (10.0-20.0); Blood Urea Nitrogen < 5 mg/dL (9-23)
[2025-01-23 06:46] LABS: Anisocytosis Moderate
--- NOTE | 2025-01-23 09:01 | DVHPN2 ---
Progress Note Date Seen: Jan 23, 2025 Medical Necessity Reason Pt with a Central, PICC or Fol: No Objective vital signs Vital Sign Date Time Temp Pulse Resp B/P (MAP) Pulse Ox O2 Delivery O2 Flow Rate FiO2 01/23/25 08:36 98.4 85 18 118/70 (86) 97 98.4 01/22/25 20:00 Room Air* 0 21 Total Intake and Output 01/22/25 01/22/25 01/23/25 15:00 23:00 07:00 Intake Total 1570 ml 618 ml 600 ml Balance 1570 ml 618 ml 600 ml medications Current Medications Medications Dose Ordered Sig/Rock Route Start Time Stop Time Status Last Admin Dose Admin Acetaminophen 650 mg Q6HP PRN PO 01/21/25 01:00 Acetaminophen/ Hydrocodone Bitart 1 tab Q4HP PRN PO 01/21/25 01:00 01/22/25 10:15 1 TAB Ceftriaxone Sodium/Dextrose 50 ml @ 50 mls/hr DAILY IV 01/21/25 10:00 Metronidazole 100 ml @ 100 mls/hr Q8HR@0100,0900,1700 IV 01/21/25 09:00 01/23/25 01:07 100 MLS/HR Potassium Chloride/Dextrose/ Sod Cl 1,000 ml @ 120 mls/hr Q8H20M IV 01/21/25 07:45 01/22/25 17:32 120 MLS/HR laboratory and microbiology Laboratory Tests 01/23/25 04:35 Test 01/23/25 04:35 Range/Units Serum Glucose 78 74-106 mg/dL Problem List/Assessment/Plan Problem List/Assessment/Plan 01/23/25 SHE FEELS WELL, HAS NO NAUSEA AND HAS NOT VOMITED, RECEIVED TRANSFUSION YESTERDAY ABDOMEN IS SOFT AND APPROPRIATELY TENDER, WOUNDS WELL APPROXIMATED. Plan discussed with: Patient ELLEN MCLEAN MD Jan 23, 2025 09:01
--- NOTE | 2025-01-23 13:38 | DVHPNRES ---
Progress Note Date Seen: Jan 23, 2025 Resident Creating Document: VINCENZO MONTOYA RESIDENT Medical Necessity Reason Pt with a Central, PICC or Fol: No Subjective Review of Systems The patient is a 49-year-old female with prior medical history of gastric bypass surgery with subsequent stricture, who presented to the ED with chief complaint of abdominal pain. The patient refers progressive onset of abdominal pain described as cramp like, initially generalized but subsequently migrated and concentrated in right lower quadrant, initially 4/10 progressed to 8/10, exacerbated by movement, with no relieving factors, associated with vomiting, nausea, and dry heaves. she denied fever, diarrhea, bloody stools, bloody vomiting, generalized body aches, malaise, fatigue, chest pain, and palpitations. Due to worsening of symptoms, the patient sought medical attention. On evaluation in the ED, the patient was in mild distress with tenderness to palpation of the right lower quadrant. Initial labs show microcytic anemia, complete metabolic panel is within normal range, and UA shows ULE 2+ and WBCs 16. Abdomen pelvis CT shows fluid-filled and dilated appendix measuring up to 10 mm with periappendiceal stranding suggestive of acute appendicitis. She was admitted for further workup and monitoring. On admission, she was placed on NPO, IV fluids, IV antibiotics, and a surgery consult was placed. 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 States she lives with her and daughter, states she feels safe. Patient seen at bedside. She is AOx4, states she feels well, refers abdominal tenderness which is improved by use of abdominal binder. She has been able to get out of bed and walk to the bathroom without issue. Currently denies dizziness upon standing, fever, diarrhea, vomiting, chest pain, and palpitations. No adverse events overnight. Vitals have been stable. Labs were significant for hemoglobin of 6.6. due to this, another units of PRBC has been transfused. Follow-up abdominal CT has been ordered for evaluation of possible bleeding. Patient tolerated soft mechanical diet, she requested to be back on clear liquids. Continues on IV antibiotics. We will continue to monitor. Objective vital signs Vital Sign Date Time Temp Pulse Resp B/P (MAP) Pulse Ox O2 Delivery O2 Flow Rate FiO2 01/23/25 12:33 98.0 70 18 119/73 (88) 98 98.0 01/23/25 08:00 Room Air* 0 21 Total Intake and Output 01/22/25 01/22/25 01/23/25 15:00 23:00 07:00 Intake Total 1570 ml 618 ml 600 ml Balance 1570 ml 618 ml 600 ml medications Current Medications Medications Dose Ordered Sig/Rock Route Start Time Stop Time Status Last Admin Dose Admin Acetaminophen 650 mg Q6HP PRN PO 01/21/25 01:00 Acetaminophen/ Hydrocodone Bitart 1 tab Q4HP PRN PO 01/21/25 01:00 01/22/25 10:15 1 TAB Ceftriaxone Sodium/Dextrose 50 ml @ 50 mls/hr DAILY IV 01/21/25 10:00 Metronidazole 100 ml @ 100 mls/hr Q8HR@0100,0900,1700 IV 01/21/25 09:00 01/23/25 01:07 100 MLS/HR Potassium Chloride/Dextrose/ Sod Cl 1,000 ml @ 120 mls/hr Q8H20M IV 01/21/25 07:45 01/22/25 17:32 120 MLS/HR Examination General: The patient alert and oriented in person place and time. Patient following commands HEENT: Normocephalic, atraumatic, normal reactive pupils, EOM intact, pale conjunctiva, moist mucous membrane Respiratory/pulmonary: Clear lungs bilaterally, vesicular murmurs present in almost all lung padgett, no associated crackles or wheezes. Cardiovascular: Normal RRR, normal S1 and S2 Abdomen: Abdomen nondistended, Presence of abdominal binder wrapped around abdomen, presence of post laparoscopic incisions are clean and dry and approximated, normal bowel sounds, soft, tenderness to palpation around incisions, no rebound tenderness, no palpable masses. Extremities: no deformities, there is no peripheral edema present at the lower extremities, pulses are palpable Skin: No rashes or pruritus, there is no sacral edema present at this time. Neurological: Intact cranial nerves with no focal neurologic deficits laboratory and microbiology Laboratory Tests 01/23/25 04:35 Test 01/23/25 04:35 Range/Units Serum Glucose 78 74-106 mg/dL Problem List/Assessment/Plan Problem List/Assessment/Plan Assessment and Plan: Intractable abdominal pain due to Acute Appendicitis -Abdomen pelvis CT: fluid-filled and dilated appendix measuring up to 10 mm with periappendiceal stranding suggestive of acute appendicitis. -General surgery: physical examination I believe she has appendicitis, treatment options, operation (laparoscopic versus open appendectomy ) risks and complications explained in detail. - Ceftriaxone 1 g IV daily - Metronidazole 500 mg IV q.8 hours - [place] 5 mg p.o. q.4 hours PRN - Morphine 4 mg IV once - Acetaminophen 650 mg p.o. q.6 hours p.r.n. 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 Major Goals of care discussed with the patient for over 30 minutes. FULL CODE. Plan discussed with: Patient My Orders My Orders Orders - VINCENZO MONTOYA RESIDENT Procedure Category Date Status Time Obtain Consent For: ORDERS 01/23/25 Transmitted 07:32 Hemoglobin & LAB 01/23/25 Logged Hematocrit 17:00 Administer Blood JASWINDER 01/23/25 In Process Products 07:32 Full Liq Diet DIET 01/23/25 Transmitted Lunch CC Plasma Assessment Blood Product Administration S: [id number] Date of Service: Jan 23, 2025 Billing Provider: JUAN CARLOS MAJOR MD Common Visit Codes: [id number] INP/OBS CARE(HIGH) VINCENZO MONTOYA RESIDENT Jan 23, 2025 13:38 JUAN CARLOS MAJOR MD Jan 24, 2025 20:33
--- NOTE | 2025-01-23 15:38 | DVH ---
Exam: CT CT AB PEL WO CON-NO ORAL OR IV History: s/p appendectomy, dropping Hb Comparison Study: CT CT AB PEL WO CON-NO ORAL OR IV on DOS: 01/20/25 TECHNIQUE: Multidetector CT of the abdomen was performed from lung bases to pubic symphysis. Imaging was performed without IV contrast. Axial, coronal and sagittal multiplanar reformats were obtained fr om the axial data set by the technologist. Radiation Dose Information: CT Dose: CTDI volume is 5.39 mGy. Dose-length product is 64.81 mGy*cm FINDINGS: Evaluation of solid organs is limited due to lack of intravenous contrast use. Findings: Lung Bases: No acute or significant lung base finding. Normal heart size. Trace bilateral pleural ef fusions. No pericardial effusion. Liver: The liver is normal in size. No focal lesions. Gallbladder and Biliary Tree: Unremarkable Spleen: Unremarkable Pancreas: The pancreas is grossly normal in appearance. Adrenal Glands: Unremarkable Kidneys: Kidneys are grossly normal without calculi or hydronephrosis. Bladder: Grossly unremarkable for degree of distention. Bowel: The stomach is grossly normal in appearance. Small bowel and colon are normal in caliber and d istribution. The appendix is not visualized; however, no secondary findings of acute appendicitis id entified. Ascites: Inter development of fluid in the abdomen and pelvis which was not present previous study of 01/20/2025. Tissue density of the fluid is between 22 and 28 Hounsfield units. This may represent b lood. Lymphadenopathy: No mesenteric, retroperitoneal or periportal lymphadenopathy. Abdominal Wall and Mesentery: Unremarkable. Vasculature: The visualized abdominal aorta is normal in size and caliber. Evaluation of abdominal a nd pelvic vessels is limited due to lack of intravenous contrast. Pelvic Organs: Unremarkable Musculoskeletal: No aggressive focal bony lesions, acute fractures or dislocation. Soft tissues: Unremarkable IMPRESSION: 1. Compared to prior study 01/20/2025, is development of ascites around the liver spleen and in the a bdomen and pelvis. Tissue density of the fluid is between 22 and 28 Hounsfield units and may be consi stent with blood. Radiation optimization: All CT scans at this facility use at least one of these dose optimization te chniques: automated exposure control mA and/or kV adjustment per patient size (includes targeted exa ms where dose is matched to clinical indication) or iterative reconstruction.
[2025-01-23 17:06] LABS: Hemoglobin 8.8 g/dL (12.2-16.2)
[2025-01-23 17:08] LABS: Hematocrit 27.7 % (36.0-46.0)
[2025-01-24 01:00] VITALS: BP 121/75; PULSE 68; RESP 20; TEMP 97.9; O2SAT 97
[2025-01-24 05:37] LABS: Nucleated Red Blood Cells % 0.1 %
[2025-01-24 05:39] LABS: Hematocrit 28.4 % (36.0-46.0); Hemoglobin 9.1 g/dL (12.2-16.2); Mean Corpuscular Hemoglobin 21.9 pg (28.0-32.0); Mean Corpuscular Volume 68.3 fL (80.0-100.0)
[2025-01-24 05:42] LABS: Anisocytosis Moderate
[2025-01-24 08:00] VITALS: PULSE 84; RESP 17; O2SAT 97
[2025-01-24 08:52] VITALS: BP 122/71; PULSE 84; RESP 17; TEMP 98; O2SAT 97
--- NOTE | 2025-01-24 08:54 | DVHPN2 ---
Subjective Date Seen: Jan 24, 2025 Post op day Post op day: 3 Patient reports: No new complaints, Feels better Nursing reports: No new complaints General: Normal HNT: Normal Cardiovascular: Normal Respiratory: Normal Gastrointestinal: Normal Genitourinary: Normal Musculoskeletal: Normal Neurological: Normal Objective Vitals Vital Sign Date Time Temp Pulse Resp B/P (MAP) Pulse Ox O2 Delivery O2 Flow Rate FiO2 01/24/25 01:00 97.9 68 20 121/75 (90) 97 97.9 01/23/25 20:00 Room Air* 0 21 Total Intake and Output 01/23/25 01/23/25 01/24/25 15:00 23:00 07:00 Intake Total 300 ml 700 ml 500 ml Balance 300 ml 700 ml 500 ml Medications Current Medications Medications Dose Ordered Sig/Rock Route Start Time Stop Time Status Last Admin Dose Admin Acetaminophen 650 mg Q6HP PRN PO 01/21/25 01:00 Acetaminophen/ Hydrocodone Bitart 1 tab Q4HP PRN PO 01/21/25 01:00 01/22/25 10:15 1 TAB Ceftriaxone Sodium/Dextrose 50 ml @ 50 mls/hr DAILY IV 01/21/25 10:00 01/23/25 15:50 50 MLS/HR Metronidazole 100 ml @ 100 mls/hr Q8HR@0100,0900,1700 IV 01/21/25 09:00 01/24/25 08:32 100 MLS/HR Potassium Chloride/Dextrose/ Sod Cl 1,000 ml @ 120 mls/hr Q8H20M IV 01/21/25 07:45 01/22/25 17:32 120 MLS/HR General: Normal Head/Eyes: Normal ENT: Normal Neck: Normal, Supple Lungs: Normal Cardiovascular: Normal, Regular rate and rhythm Abdominal: Normal, Soft Skin: Normal Labs and Microbiology Laboratory Tests 01/24/25 04:31 01/23/25 04:35 Test 01/23/25 04:35 Range/Units Serum Glucose 78 74-106 mg/dL Ass/Plan Labs and/or images reviewed: Labs reviewed by me, Image(s) reviewed by me Problem List Assessment and Plan: Intractable abdominal pain due to Acute Appendicitis -Abdomen pelvis CT: fluid-filled and dilated appendix measuring up to 10 mm with periappendiceal stranding suggestive of acute appendicitis. -General surgery: physical examination I believe she has appendicitis, treatment options, operation (laparoscopic versus open appendectomy ) risks and complications explained in detail. - Ceftriaxone 1 g IV daily - Metronidazole 500 mg IV q.8 hours - [place] 5 mg p.o. q.4 hours PRN - Morphine 4 mg IV once - Acetaminophen 650 mg p.o. q.6 hours p.r.n. 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 Major Goals of care discussed with the patient for over 30 minutes. FULL CODE. Assessment/Plan s/p laparoscopic appendectomy tolerating diet, passing gas, denies nausea and vomiting abdomen soft, non distended, appropriately tender wounds clean dry and intact Plan: ok to discharge per surgery point of view follow up in surgery clinic in 2 weeks may shower in 48 hours 01/24/25 no new complaints from patient , patient expresses a strong desire to be discharged today. She does not want to stay another 24 hours for observation patient reports to be feeling well tolerating diet , denies nausea or vomiting reports passing gas and BM abdomen soft , non distended appropriately tender CT : Compared to prior study 01/20/2025, is development of ascites around the liver spleen and in the abdomen and pelvis. Tissue density of the fluid is between 22 and 28 Hounsfield units and may be consistent with blood. discussed with Dr. Bridges the fluid is most likely attributable to surgical irrigation Plan: per surgery point of view ok to discharge patient contingent on blood pressure and heart rate normal range patient to follow up in surgery clinic in two weeks patient verbalized understanding and reiterated the desire to be discharged send home with antibiotics Prognosis: Good Plan discussed with patient, Dr. Bridges Visit Coding Surgery Date of Service if different f: Jan 24, 2025 Billing Provider: ELLEN BRIDGES MD Surgery Visit Codes: [id number] INP/OBS CARE(HIGH) RAÚL MCKENZIE NP Jan 24, 2025 08:54
[2025-01-24] MEDS ORDERED: AUG875T PO (11:54)
[2025-01-24 12:32] VITALS: BP 115/71; PULSE 70; RESP 15; TEMP 98.2; O2SAT 99
--- NOTE | 2025-01-24 17:13 | DVHDSRES ---
Discharge Summary Date of Admission Resident Creating Document: LEROY MARIN RESIDENT Jan 21, 2025 at 00:53 Date of Discharge: Jan 24, 2025 Admitting Diagnosis acute abdominal pain likely due to acute appendicitis Labs/Diagnostic Data: Laboratory Results Test 01/24/25 04:31 01/23/25 04:35 01/21/25 05:07 01/21/25 02:50 White Blood Count 3.9 10^3/uL (4.4-10.8) Red Blood Count 4.15 10^6/uL (4.0-5.20) Hemoglobin 9.1 g/dL (12.2-16.2) Hematocrit 28.4 % (36.0-46.0) Mean Corpuscular Volume 68.3 fL (80.0-100.0) Mean Corpuscular Hemoglobin 21.9 pg (28.0-32.0) Mean Corpuscular Hemoglobin Concent 32.1 g/dL (32.0-36.0) Red Cell Distribution Width 27.8 % (11.8-14.3) Platelet Count 146 10^3/uL (140-450) Mean Platelet Volume 9.0 fL (6.9-10.8) Neutrophils (%) (Auto) 55.1 % (37.0-80.0) Lymphocytes (%) (Auto) 33.4 % (10.0-50.0) Monocytes (%) (Auto) 7.8 % (0.0-12.0) Eosinophils (%) (Auto) 2.9 % (0.0-7.0) Basophils (%) (Auto) 0.8 % (0.0-2.0) Neutrophils # (Auto) 2.1 10 ^3/uL (1.6-8.6) Lymphocytes # (Auto) 1.3 10 ^3/uL (0.4-5.4) Monocytes # (Auto) 0.3 10 ^3/uL (0-1.3) Eosinophils # (Auto) 0.1 10 ^3/uL (0-0.8) Basophils # (Auto) 0 10 ^3/uL (0-0.2) Nucleated Red Blood Cells 0.1 % Platelet Estimate Adequate Hypochromasia (manual) Moderate Anisocytosis (manual) Moderate Microcytosis Marked Sodium Level 143 mmol/L (136-145) Potassium Level 4.1 mmol/L (3.5-5.1) Chloride Level 108 mmol/L (98-107) Carbon Dioxide Level 27 mmol/L (20-31) Anion Gap 8 (5-15) Blood Urea Nitrogen < 5 mg/dL (9-23) Creatinine 0.64 mg/dL (0.550-1.02) Glomerular Filtration Rate Calc 109 mL/min (>90) BUN/Creatinine Ratio 7.8 (10.0-20.0) Serum Glucose 78 mg/dL (74-106) Calcium Level 8.1 mg/dL (8.7-10.4) Prothrombin Time 11.7 sec (9.3-11.8) Prothrombin Time INR 1.12 (0.9-1.15) Activated Partial Thromboplast Time 30.5 SEC (24.5-34.5) Hemoglobin A1c 5.4 % A1C (<5.7) Beta HCG, Quantitative 3.4 mIU/mL (1.5-4.2) Urine Color Light-yellow (Yellow) Urine Clarity Clear (Clear) Urine pH 5.5 (5.0-9.0) Urine Specific [place] 1.008 (1.001-1.035) Urine Protein Negative (Negative) Urine Ketones Negative (Negative) Urine Blood Negative /uL (Negative) Urine Nitrite Negative (Negative) Urine Bilirubin Negative (Negative) Urine Urobilinogen Normal mg/dL (Negative) Urine Leukocyte Esterase 2+ /uL (Negative) Urine RBC None seen /hpf (0 - 4) Urine Microscopic WBC 16 /HPF (0-5) Urine Squamous Epithelial Cells Few /hpf (<5) Urine Bacteria None seen /hpf (None Seen) Urine Mucus Few (None Seen) Urine Glucose Normal mg/dL (Normal) Urine Opiates Screen Pos (NEGATIVE) Urine Fentanyl Screen Pos (NEGATIVE) Urine Barbiturates Screen Neg (NEGATIVE) Urine Phencyclidine Screen Neg (NEGATIVE) Urine Amphetamines Screen Neg (NEGATIVE) Urine Benzodiazepines Screen Neg (NEGATIVE) Urine Cocaine Screen Neg (NEGATIVE) Urine Cannabinoids Screen Neg (NEGATIVE) Test 01/20/25 22:48 Iron Level 15 ug/dL (50-170) Total Iron Binding Capacity 349 ug/dL (250-425) Percent Iron Saturation 4.3 % (15-50) Ferritin 2.8 ng/mL (10-291) Total Bilirubin 1.0 mg/dL (0.2-1.0) Aspartate Amino Transferase (AST) 20 U/L (13-40) Alanine Aminotransferase (ALT) < 9 U/L (7-40) Alkaline Phosphatase 86 U/L (46-116) Total Protein 7.1 g/dL (5.7-8.2) Albumin 4.4 g/dL (3.2-4.8) Triglycerides Level 72 mg/dL (< 150) Cholesterol Level 122 mg/dL (< 200) LDL Cholesterol 62 mg/dL (< 100) HDL Cholesterol 48 mg/dL (40-59) Lipase 37 U/L (12-53) Vitamin B12 Level 423 pg/mL (211-911) Other Laboratory Tests 01/24/25 04:31 01/23/25 04:35 Brief Hx & Hospital Course: HISTORY OF PRESENT ILLNESS: The patient is a 49-year-old female with prior medical history of gastric bypass surgery with subsequent stricture, who presented to the ED with chief complaint of abdominal pain. The patient refers progressive onset of abdominal pain described as cramp like, initially generalized but subsequently migrated and concentrated in right lower quadrant, initially 4/10 progressed to 8/10, exacerbated by movement, with no relieving factors, associated with vomiting, nausea, and dry heaves. she denied fever, diarrhea, bloody stools, bloody vomiting, generalized body aches, malaise, fatigue, chest pain, and palpitations. Due to worsening of symptoms, the patient sought medical attention. On evaluation in the ED, the patient was in mild distress with tenderness to palpation of the right lower quadrant. Initial labs show microcytic anemia, complete metabolic panel is within normal range, and UA shows ULE 2+ and WBCs 16. Abdomen pelvis CT shows fluid-filled and dilated appendix measuring up to 10 mm with periappendiceal stranding suggestive of acute appendicitis. She was admitted for further workup and monitoring. On admission, she was placed on NPO, IV fluids, IV antibiotics, and a surgery consult was placed. 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 States she lives with her and daughter, states she feels safe. HOSPITAL COURSE: And was admitted at the line of acute appendicitis. CT abdomen was done, showed Findings as above suggestive of acute appendicitis in the appropriate clinical setting. No abscess. Patient was started on empiric antibiotic Rocephin, Flagyl, IV fluid, pain management. Surgery was consulted, performed laparoscopic appendectomy with no significant perioperative complication. During hospital course patient's hemoglobin dropped, CT scan was performed and showed development of ascites around the liver spleen and in the abdomen and pelvis, surgery recommended conservative management. Due to severe anemia patient was transfused 2 pt of blood. On 01/24/2025, patient was feeling better since admission. Patient was clinically and vitally stable. Discharge plan discussed with the patient and the patient discharged. DISCHARGE PLAN: Follow up PCP within 1 week of the discharge. Follow up with the surgeon on outpatient basis. Augmentin 875 mg twice daily for 7 days FINAL DIAGNOSIS: Intractable abdominal pain due to Acute Appendicitis Intractable vomiting, due to above Dehydration, due to above Abdominal stricture secondary to bariatric surgery/gastric bypass Colonic diverticulosis without CT evidence of diverticulitis History of marijuana use History of tobacco use Severe anemia, status post blood transfusion, 2 pt PRBC Condition at Discharge: Stable Final Diagnosis/Problems List ntractable abdominal pain due to Acute Appendicitis Intractable vomiting, due to above Dehydration, due to above Abdominal stricture secondary to bariatric surgery/gastric bypass Colonic diverticulosis without CT evidence of diverticulitis History of marijuana use History of tobacco use Severe anemia, status post blood transfusion, 2 pt PRBC Discharge Disposition: Home Discharge Instruct/Medications Diet: Regular Activity: No Restrictions, As Tolerated Follow Up/Referral: follow up with pcp in 1-2 weeks follow up with surgery in 2 weeks Medications: augmentin 875 mg bid for7 days Scheduled Amoxicillin & Pot Clavulanate (Augmentin Tablet), 875 MG PO BID Omeprazole (Gnp Omeprazole), 20 MG PO DAILY, (Reported) Discharge Statement: "Patient was advised to return to the ER or call 911 if any headaches, dizziness, shortness of breath, chest pain, abdominal pain, bleeding, fevers, or worsening of medical condition. Patient was counseled about treatment plan, medications, possible side effects, patientverbalized understanding. All questions were answered to the best of my ability. This discharge took greater then 30 minutes in planning, reviewing documentation, counseling the patient, and discussing with other team members." ASSESSMENT ASSESSMENT Assessment Appendicitis Date of Service: Jan 24, 2025 Billing Provider: JUAN CARLOS LYON MD Common Visit Codes: [id number] DISCH DAY >30min LEROY MARIN RESIDENT Jan 24, 2025 17:13 JUAN CARLOS LYON MD Jan 24, 2025 20:34
== END 2025-01-24 13:30 | disposition home or self-care (01) | DRG 234 ==
LOC: ER 21:55 → OVERFLOW 01-21 00:53 → WEST WING 01-21 15:42
PROVIDERS: ADMIT Internal Medicine Geriatric Medicine; ATTEND Internal Medicine Geriatric Medicine
PROC: 0DTJ4ZZ Resection of Appendix, Percutaneous Endoscopic Approach (ICD-10-PCS; principal; 2025-01-21 09:20)
PROC: 30233N1 Transfusion of Nonautologous Red Blood Cells into Peripheral Vein, Percutaneous Approach (ICD-10-PCS; 2025-01-22)
DX: K35.80 Unspecified acute appendicitis (principal); D62 Acute posthemorrhagic anemia; D50.9 Iron deficiency anemia, unspecified; E86.0 Dehydration; K57.30 Diverticulosis of large intestine without perforation or abscess without bleeding; Z98.84 Bariatric surgery status; Z87.891 Personal history of nicotine dependence; Z79.899 Other long term (current) drug therapy
CPT/HCPCS: 36415; 74176; 80048; 80053; 80061; 80307; 81001; 82607; 82728; 83036; 83540; 83550; 83690; 84702; 85014; 85018; 85025; 85610; 85730; 86850; 86900; 86901; 86920; 96365; 96375; G0378; J1100; J1885; J2003; J2250; J2405; J2704; J3490